=== PATIENT | female | born 2000 | race Two or more races ===

== ENCOUNTER 2023-11-23 02:49 | Emergency (ER) | payer OTHER ==
[~2023-11-23] VITALS: Ht 152.4 cm; Wt 57.2 kg
[~2023-11-23 02:49] MED LIST: FLUCONAZOLE150 MG PO; METRONIDAZOLE500 MG PO
[2023-11-23 02:55] VITALS: BP 96/60; O2SAT 99
[2023-11-23 04:10] LABS: HEMOGLOBIN 12.8 g/dL (12.0-15.00); MEAN CELL VOLUME 81.7 fL (80.00-100.00); MEAN CORPUSCULAR HEMOGLOBIN 28.3 pg (27.00-32.0); MEAN CORPUSCULAR HGB CONC 34.6 g/dl (32.0-36.0); PLATELET COUNT 283 K/uL (150-450); RED BLOOD COUNT 4.53 M/uL (4.00-6.00); RED CELL DISTRIBUTION WIDTH 13.5 % (11.5-14.5)
[2023-11-23 04:28] LABS: PH,URINE 6.5 (5.0-8.0); URINE APPEARANCE Clear; URINE BILIRRUBIN Negative (NEGATIVE); URINE BLOOD NHT; URINE COLOR Yellow; URINE GLUCOSE Negative (NEGATIVE); URINE KETONE Negative (NEGATIVE); URINE LEUKOCYTE Moderate; URINE NITRATE Negative; URINE PROTEIN Negative (NEGATIVE); URINE UROBILINOGEN 0.2 E.U./dl
[2023-11-23 04:32] LABS: URINE BACTERIA 968.8 uL (0.0-1933); URINE EPITHELIAL CELLS 22.8 uL (0.0-38.8); URINE WBC 35.5 uL (0.0-23.2)
[2023-11-23 04:33] LABS: INR 0.99; PARTIAL THROMBOPLASTIN TIME 28.7 SECONDS (22.0-34.0); PROTHROMBIN TIME 10.8 SECONDS (9.0-11.5)
[2023-11-23 04:41] LABS: URINE CAST 0.15 uL (0.0-1.40); URINE RBC 1.8 uL (0.0-20.8)
[2023-11-23 04:52] LABS: CREATININE SERUM 0.54 mg/dL (0.55-1.02); GFR 138.7; POTASSIUM 3.59 mEq/L (3.5-5.1)
== END 2023-11-23 07:27 ==
LOC: ER 02:51
PROVIDERS: General Practice
DX: O20.9 Hemorrhage in early pregnancy, unspecified (principal); Z3A.08 8 weeks gestation of pregnancy